=== PATIENT | female | born 1990 | race American Indian/Alaskan Native ===

== ENCOUNTER 2021-03-21 12:22 | Emergency (ER) | payer BC, OTHER ==
[2021-03-21 12:26] VITALS: BP 108/63
[2021-03-21] MEDS ORDERED: KETOROLAC 30 MG/1 ML INJ IV ONE (13:39)
[2021-03-21] MEDS ORDERED: CYCLOBENZAPRINE 10 MG TAB PO ONE (13:42)
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
== END 2021-03-21 17:30 | disposition home or self-care (01) ==
LOC: ED 12:22
DX: S32.10XA Unspecified fracture of sacrum, initial encounter for closed fracture (principal); V89.2XXA Person injured in unspecified motor-vehicle accident, traffic, initial encounter; Y93.89 Activity, other specified; Y92.89 Other specified places as the place of occurrence of the external cause; Y99.8 Other external cause status
CPT/HCPCS: 70450; 72192; 73502; 96374; 99284; J1885